=== PATIENT | male | born 1955 | race Caucasian/White ===

== ENCOUNTER 2023-04-30 15:49 | Inpatient (IN) ==
[2023-04-30] MEDS: Heparin DRIP 25,000 UNITS BAG 25,000 UNITS/500 ML BAG IV SCH (16:52)
[2023-04-30 16:55] LABS: ABS Basophils 0.1 10^3/uL (0.0-0.1); ABS Eosinophils 0.2 10^3/uL (0.0-0.5); ABS Lymphocytes 2.4 10^3/uL (1.0-4.8); ABS Monocytes 0.5 10^3/uL (0.0-1.1); ABS Neutrophils 3.8 10^3/uL (1.5-7.6); ABS Nucleated RBC 0.01 10^3/ul; Eosinophil % 2.3 %; Hematocrit 41.2 % (38-53); Hemoglobin 14.2 g/dL (13.2-16.3); Lymphocyte % 35.5 %; Mean Corpuscular Hemoglobin 33.6 pg (27-33); Mean Corpuscular Hgb Conc 34.6 g/dL (31-36); Mean Platelet Volume 7.4 fL (7.5-11.2); Nucleated Red Blood Cells % 0.1 /100 WBC (0.0-0.4); Platelet Count 290 10^3/uL (150-450); Red Blood Count 4.24 10^6/uL (4.06-5.63); Red Cell Distribution Width 13.4 % (12-17); White Blood Count 6.9 10^3/uL (3.6-10.2)
[2023-04-30] MEDS ORDERED: Heparin 5000 UNITS/ML 1 mL VIAL IV SCH (17:00)
[2023-04-30] MEDS ORDERED: Ondansetron 4 mg VIAL 2 MG/ML 2 ml VIAL IV PRN (17:16)
[2023-04-30 17:21] LABS: Creatinine, Serum 0.91 mg/dL (0.67-1.17)
[2023-04-30 18:13] LABS: High Sensitivity Troponin 1 Hr 46 pg/mL (<20)
[2023-04-30] MEDS: Venlafaxine XR 75 mg PO SCH (22:11)
[2023-04-30] MEDS: CMCS: Ranolazine 500 mg TAB ER (NF) PO SCH (22:18)
[2023-05-01 06:41] LABS: ABS Basophils 0.1 10^3/uL (0.0-0.1); ABS Eosinophils 0.2 10^3/uL (0.0-0.5); ABS Lymphocytes 2.4 10^3/uL (1.0-4.8); ABS Monocytes 0.5 10^3/uL (0.0-1.1); ABS Neutrophils 3.6 10^3/uL (1.5-7.6); ABS Nucleated RBC 0.01 10^3/ul; Eosinophil % 2.9 %; Hematocrit 38.2 % (38-53); Hemoglobin 13.2 g/dL (13.2-16.3); Lymphocyte % 35.4 %; Mean Corpuscular Hemoglobin 33.4 pg (27-33); Mean Corpuscular Hgb Conc 34.6 g/dL (31-36); Mean Corpuscular Volume 96.4 fL (80-97); Mean Platelet Volume 7.7 fL (7.5-11.2); Nucleated Red Blood Cells % 0.1 /100 WBC (0.0-0.4); Platelet Count 256 10^3/uL (150-450); Red Blood Count 3.96 10^6/uL (4.06-5.63); Red Cell Distribution Width 13.4 % (12-17); White Blood Count 6.7 10^3/uL (3.6-10.2)
[2023-05-01 06:54] LABS: Calcium 8.8 mg/dL (8.6-10.3); Magnesium 1.9 mg/dL (1.9-2.7); Potassium 3.9 mmol/L (3.5-5.0)
[2023-05-01] MEDS: Aspirin EC 81 mg TAB.EC (enteric coated) PO SCH (07:58)
[2023-05-01] MEDS: Venlafaxine XR 75 mg PO SCH ×2 (07:59→20:51)
[2023-05-01] MEDS: CMCS: OMEGA-3 FATTY ACID 1000 mg(NF) PO SCH (07:59)
[2023-05-01] MEDS ORDERED: Venlafaxine XR 75 mg PO SCH ×2 (09:00)
[2023-05-01] MEDS ORDERED: NS 0.9% 1000 ml BAG 1,000 ML IV SCH (09:30)
[2023-05-01 09:57] LABS: High Sensitivity Troponin 3 Hr 40 pg/mL (<20)
[2023-05-01] MEDS: CMCS: Ranolazine 500 mg TAB ER (NF) PO SCH ×2 (10:02→20:51)
[2023-05-01] MEDS: Heparin DRIP 25,000 UNITS BAG 25,000 UNITS/500 ML BAG IV SCH (12:26)
[2023-05-01] MEDS ORDERED: Midazolam 10 mg/10 ml VIAL 1 mg/ml 10 ml VIAL (10 mg) IV SLOW PU ONE (17:59)
[2023-05-01] MEDS ORDERED: fentaNYL 100 mcg/2 ml 50 MCG/ML VIAL IV SLOW PU ONE (17:59)
[2023-05-02 06:49] LABS: ABS Basophils 0.1 10^3/uL (0.0-0.1); ABS Eosinophils 0.2 10^3/uL (0.0-0.5); ABS Lymphocytes 2.4 10^3/uL (1.0-4.8); ABS Monocytes 0.4 10^3/uL (0.0-1.1); ABS Neutrophils 3.1 10^3/uL (1.5-7.6); Eosinophil % 3.6 %; Hematocrit 38.8 % (38-53); Hemoglobin 13.7 g/dL (13.2-16.3); Lymphocyte % 38.9 %; Mean Corpuscular Hemoglobin 33.9 pg (27-33); Mean Corpuscular Hgb Conc 35.3 g/dL (31-36); Mean Platelet Volume 7.9 fL (7.5-11.2); Platelet Count 257 10^3/uL (150-450); Red Blood Count 4.04 10^6/uL (4.06-5.63); Red Cell Distribution Width 13.4 % (12-17); White Blood Count 6.3 10^3/uL (3.6-10.2)
[2023-05-02] MEDS ORDERED: NS 0.9% 1000 ml BAG 1,000 ML IV SCH ×2 (07:00→11:30)
[2023-05-02 07:03] LABS: Creatinine, Serum 1.18 mg/dL (0.67-1.17); Potassium 4.1 mmol/L (3.5-5.0); eGFR CKD-EPI 68.1 (>60)
[2023-05-02] MEDS: Heparin DRIP 25,000 UNITS BAG 25,000 UNITS/500 ML BAG IV SCH (09:26)
[2023-05-02] MEDS: Aspirin EC 81 mg TAB.EC (enteric coated) PO SCH (09:33)
[2023-05-02] MEDS: CMCS: OMEGA-3 FATTY ACID 1000 mg(NF) PO SCH (09:34)
[2023-05-02] MEDS: Venlafaxine XR 75 mg PO SCH (09:35)
[2023-05-02] MEDS: CMCS: Ranolazine 500 mg TAB ER (NF) PO SCH (09:42)
[2023-05-02] MEDS ORDERED: Lidocaine 1% MPF 5 ML VIAL ONE (10:10)
[2023-05-02] MEDS ORDERED: Heparin 2 UNITS/ML 1000 mls 2,000 ML IV ONE (10:10)
[2023-05-02] MEDS ORDERED: Iohexol 350 (CONTRAST) 200 ML MDV IV ONE (10:11)
[2023-05-02] MEDS ORDERED: VERAPAMIL 2.5 MG/ML 2 ML VIAL ** 5 mg/2 ml ONE (10:38)
[2023-05-02] MEDS ORDERED: Heparin 1,000 UNIT/ML 10 ml (10,000 UNITS) CATHLAB/DIALYSIS ONE (10:39)
[2023-05-02] MEDS ORDERED: nitroGLYCERIN DRIP 25,000 MCG/250 ML BTL ONE (10:39)
[2023-05-02] MEDS ORDERED: Midazolam 5 mg/5 ml VIAL 1 mg/ml 5 ml VIAL (5 mg) ONE (10:42)
[2023-05-02] MEDS ORDERED: fentaNYL 100 mcg/2 ml 50 MCG/ML VIAL ONE (10:42)
[2023-05-02 22:25] VITALS: BP 148/65
== END 2023-05-02 17:46 | disposition short-term general hospital (02) | DRG 287 ==
LOC: EDHOLD 15:49 → ED 15:49 → SUATTDRO 17:16 → MEDTELE 19:12
PROVIDERS: ADMIT Internal Medicine; ATTEND Hospitalist

== ENCOUNTER 2024-08-18 16:54 | Observation (INO) ==
[2024-08-18] MEDS ORDERED: Dextrose 50% Syringe 50 ml 25 GM/50 ML SYRINGE IV PUSH PRN (20:50)
[2024-08-18] MEDS: Metoprolol Tartrate 5 mg VIAL 5 ml VIAL (1 mg/ml) IV SCH (21:54)
[2024-08-18] MEDS: Lactated Ringers 1000 ml BAG 1,000 ML IV ONE (21:54)
[2024-08-18] MEDS: Morphine 2 MG/ML SYRINGE IV PRN (22:01)
[2024-08-18] MEDS: Acetaminophen IV 1 GM/100ML 1,000 MG/100 ML BAG IV PRN (23:23)
[2024-08-19] MEDS: Metoprolol Tartrate 5 mg VIAL 5 ml VIAL (1 mg/ml) IV SCH (00:36)
[2024-08-19 06:00] LABS: ABS Basophils 0.1 10^3/uL (0.0-0.1); ABS Lymphocytes 2.6 10^3/uL (1.0-4.8); ABS Monocytes 0.6 10^3/uL (0.0-1.1); ABS Neutrophils 6.4 10^3/uL (1.5-7.6); Eosinophil % 0.4 %; Hematocrit 38.3 % (38-53); Hemoglobin 13.3 g/dL (13.2-16.3); Lymphocyte % 26.4 %; Mean Corpuscular Hemoglobin 33.1 pg (27-33); Mean Corpuscular Hgb Conc 34.7 g/dL (31-36); Mean Corpuscular Volume 95.5 fL (80-97); Mean Platelet Volume 7.5 fL (7.5-11.2); Platelet Count 244 10^3/uL (150-450); Red Blood Count 4.01 10^6/uL (4.06-5.63); Red Cell Distribution Width 13.9 % (12-17); White Blood Count 9.7 10^3/uL (3.6-10.2)
[2024-08-19 06:48] LABS: Calcium 8.5 mg/dL (8.6-10.3); Creatinine, Serum 0.84 mg/dL (0.67-1.17); Potassium 4.1 mmol/L (3.5-5.0); eGFR CKD-EPI 95.6 (>60)
[2024-08-19 11:42] VITALS: BP 138/80
[2024-08-19] MEDS: Venlafaxine XR 75 mg PO SCH (11:55)
[2024-08-19] MEDS ORDERED: Venlafaxine XR 75 mg PO SCH (21:00)
== END 2024-08-19 13:40 | disposition home or self-care (01) ==
LOC: INTOOBSV 17:48 → MED 17:48 → SUATTDRO 17:48
PROVIDERS: ADMIT Internal Medicine; ATTEND Internal Medicine